=== PATIENT | female | born 1995 | race Caucasian/White ===

== ENCOUNTER → 2020-08-25 | Outpatient (CLI) | payer OTHER ==
[~2020-08-25] MED LIST: ABILIFY10 MG PO; ATIVAN1 MG PO; BIRTH CONTROL; CEFDINIR300 MG PO; EFFEXOR 5050 MG/1 T1 PO; IBUPROFEN 400400 M1 PO; MACROBID 100 M100 M1 PO; MEDROLDOSEPACK PO; ORTHO-CYCLEN1 EACH; PAXIL; PAXIL10 MG; TIZANIDINE HCL 22 MG PO
== END ==
LOC: M.LAB 15:15
PROVIDERS: ATTEND Podiatrist Foot Surgery
DX: Z01.812 Encounter for preprocedural laboratory examination (principal); Z20.822 Contact with and (suspected) exposure to COVID-19